=== PATIENT | male | born 1965 | race American Indian/Alaskan Native ===

== ENCOUNTER 2025-02-07 04:15 | Emergency (ER) | payer OTHER ==
[~2025-02-07] VITALS: Ht 180.3 cm; Wt 90.7 kg
[~2025-02-07 04:15] MED LIST: Ambien10 MG PO; MUPI1NAS; Naprosyn500 MG PO; Norco 5-325 Ta1 EACH PO; SULTRIDS PO; TRIA80TC TOP; Valium5 MG PO
[2025-02-07 07:04] LABS: CORONAVIRUS COVID-19 AG Negative (NEGATIVE)
[2025-02-07] MEDS ORDERED: Dexamethasone Sod Phos 10 MG/ML 1ML VIAL PO ONE (07:05)
[2025-02-07] MEDS ORDERED: Albuterol 2.5 MG/3 ML VIAL INH SCH (07:05)
[2025-02-07] MEDS ORDERED: BENZ100A PO (07:14)
[2025-02-07] MEDS ORDERED: ALBU90OI INH (07:14)
[2025-02-07 08:45] VITALS: BP 114/97
== END 2025-02-07 08:54 | disposition home or self-care (01) ==
LOC: ER 04:15
PROVIDERS: Emergency Medicine
DX: J06.9 Acute upper respiratory infection, unspecified (principal); F17.200 Nicotine dependence, unspecified, uncomplicated; Z79.899 Other long term (current) drug therapy
CPT/HCPCS: 71045; 87428-QW; 94640; 94664; J1100